=== PATIENT | male | born 1945 | race Caucasian/White ===

== ENCOUNTER 2021-02-13 17:36 | Observation (INO) | payer MEDICARE, OTHER ==
--- NOTE | 2021-02-13 18:02 | XRAY Report ---
PROCEDURE: Chest 1 View X-Ray INDICATIONS: Chest pain TECHNIQUE: One view of the chest was acquired. COMPARISON: None FINDINGS: Surgical changes and devices: None. Lungs and pleura: No pleural effusions or pneumothorax. Lungs are clear. Mediastinum: Mediastinal contours appear normal. Heart size is normal. Bones and chest wall: No suspicious bony lesions. Overlying soft tissues appear unremarkable. IMPRESSION: No evidence acute pulmonary process. Reviewed by: David Tineo MD on 02/13/2021 6:01 PM PDT Approved by: David Tineo MD on 02/13/2021 6:01 PM PDT Station ID: [id number]
[2021-02-13 18:07] LABS: BASOPHILS % (AUTO) 0.4 %; EOSINOPHILS # (AUTO) 0.1 10^3/uL (0.0-0.7); EOSINOPHILS % (AUTO) 1.8 %; HCT - HEMATOCRIT 20.3 % (42.0-52.0); LYMPHOCYTES # (AUTO) 1.1 10^3/uL (1.5-3.5); LYMPHOCYTES % (AUTO) 24.8 %; MEAN CORPUSCULAR HEMOGLOBIN 26.3 pg (27.0-31.0); MEAN CORPUSCULAR VOLUME 84.6 fL (80.0-94.0); MEAN PLATELET VOLUME 8.8 fL (7.4-11.4); MONOCYTES # (AUTO) 0.5 10^3/uL (0.0-1.0); MONOCYTES % (AUTO) 9.9 %; NEUTROPHILS # (AUTO) 2.8 10^3/uL (1.5-6.6); PLT - PLATELET COUNT 278 10^3/uL (130-450); RED CELL DISTRIBUTION WIDTH 15.3 % (12.0-15.0); WHITE BLOOD COUNT 4.6 x10^3/uL (4.8-10.8)
[2021-02-13 18:08] LABS: HGB - HEMOGLOBIN 6.3 g/dL (14.0-18.0)
[2021-02-13 18:22] LABS: ALBUMIN 2.9 g/dL (3.2-5.5); ALBUMIN/GLOBULIN RATIO 0.9 (1.0-2.2); BILIRUBIN,TOTAL 0.8 mg/dL (0.2-1.0); CALCIUM 8.7 mg/dL (8.5-10.3); CREATININE 0.5 mg/dL (0.6-1.2); POTASSIUM 3.8 mmol/L (3.5-5.0); TOTAL PROTEIN 6.2 g/dL (6.7-8.2)
--- NOTE | 2021-02-13 18:30 | ED Physician Documentation ---
History of Present Illness - Stated complaint Stated Complaint: SOA - Chief complaint Chief Complaint: Cardiac - Additonal information Additional information: This is a very pleasant 75-year-old male that comes to the emergency department for evaluation of shortness of air with activity for the last 2 days. He denies any chest pain or leg swelling with this. However he reports that intermittently for the last few weeks he has been having diarrhea that is often quite bloody dark or frankly red. He does feed birds and he thought possibly he had Salmonella. However he has not had any bloody stools now for about 24 hours and stated his bowel movement this morning was normal. He does indicate to this provider however that he often has hemorrhoids. Patient reports that he last had an echo and stress test about 5 years ago through [facility] and tells me the results were essentially normal. He also reports that he gets colonoscopies every 5 years and has been told he only has polyps. He denies any previous history of GI bleeding. PMH: hypertension, hyperlipidemia Meds: amlodipine, Lipitor, Prilosec, daily ASA 81 mg Social: Former smoker quit 30 years ago. Endorses moderate alcohol use. Review of Systems Constitutional: denies: Fever, Chills Eyes: reports: Reviewed and negative Ears: reports: Reviewed and negative Nose: reports: Reviewed and negative Throat: reports: Reviewed and negative Cardiac: denies: Chest pain / pressure, Palpitations, Calf pain Respiratory: reports: Dyspnea. denies: Cough, Hemoptysis, Wheezing GI: reports: Diarrhea, Bloody / black stool. denies: Abdominal Pain, Nausea, Vomiting : denies: Dysuria, Frequency, Hesitancy Skin: denies: Rash, Lesions Musculoskeletal: denies: Neck pain, Back pain Neurologic: reports: Reviewed and negative Psychiatric: reports: Reviewed and negative PD PAST MEDICAL HISTORY - Present Medications Home Medications: Ambulatory Orders Medication Instructions Recorded Confirmed Atorvastatin Calcium [Lipitor] 80 mg PO DAILY 02/13/21 02/13/21 - Allergies Allergies/Adverse Reactions: Allergies Allergy/AdvReac Type Severity Reaction Status Date / Time No Known Drug Allergies Allergy Verified 02/13/21 17:40 PD ED PE EXPANDED - General General: Alert, No acute distress, Well developed/nourished, Other (obese) - Cardiac Cardiac: Regular Rate, Murmur Present, Radial strong equal, Pedal strong equal, Cap refill < 2 sec - Respiratory Respiratory: Clear to ausultation sri. No: Distress, Labored, Wheezing, Rhonchi - Abdomen Abdomen: Normal Bowel sounds. No: Tender to palpation - Rectal Rectal: Hemorrhoid, Normal Tone, Other (Digital rectal exam revealed an empty vault. No stool obtained.) - Derm Derm: Normal color, Warm and dry - Neuro Neuro: Alert and Oriented X 3, CNII-XII intact - GCS Eye Opening: Spontaneous Motor: Obeys Commands Verbal: Oriented Total: 15 Results - Vitals Vitals: Vital Signs - 24 hr 02/13/21 02/13/21 02/13/21 17:40 18:30 19:16 Temperature 36.5 C Heart Rate 82 82 78 Respiratory 16 18 16 Rate Blood Pressure 132/64 H 120/68 124/67 O2 Saturation 97 97 97 02/13/21 02/13/21 02/13/21 20:00 20:08 20:17 Temperature 36.3 C L 36.2 C L 36.4 C L Heart Rate 78 72 71 Respiratory 19 19 17 Rate Blood Pressure 117/61 126/65 131/64 H O2 Saturation Oxygen O2 Source Room air - EKG (time done) 1745 Rate: Rate (enter#) (85) Rhythm: NSR, Other (multiple PVC) [place]: Normal Intervals: RBBB QRS: Normal Ischemia: Normal ST segments Compare to prior EKG: Old EKG unavailable Computer interpretation: Agree with computer - Labs Labs: Laboratory Tests 02/13/21 02/13/21 02/13/21 17:55 17:55 17:55 WBC 4.6 L RBC 2.40 L Hgb 6.3 L* Hct 20.3 L MCV 84.6 MCH 26.3 L MCHC 31.0 L RDW 15.3 H Plt Count 278 MPV 8.8 Neut # (Auto) 2.8 Lymph # (Auto) 1.1 L [place] # (Auto) 0.5 Eos # (Auto) 0.1 Baso # (Auto) 0.0 Absolute Nucleated RBC 0.00 Nucleated RBC % 0.0 Sodium 138 Potassium 3.8 Chloride 106 Carbon Dioxide 25 Anion Gap 7.0 BUN 18 Creatinine 0.5 L Estimated GFR (MDRD) 162 Glucose 114 H Calcium 8.7 Iron TIBC % Saturation Transferrin Ferritin Total Bilirubin 0.8 AST 24 ALT 24 Alkaline Phosphatase 83 Troponin I High Sens 6.0 B-Natriuretic Peptide Total Protein 6.2 L Albumin 2.9 L Globulin 3.3 Albumin/Globulin Ratio 0.9 L Lipase 31 Nasal Adenovirus (PCR) Nasal B. parapertussis DNA (PCR) Nasal Coronavir 229E PCR Nasal Coronavir HKU1 PCR Nasal Coronavir NL63 PCR Nasal Coronavir OC43 PCR Nasal Enterovir/Rhinovir PCR Nasal Influenza B PCR Nasal Parainfluen 1 PCR Nasal Parainfluen 2 PCR Nasal Parainfluen 3 PCR Nasal Parainfluen 4 PCR Nasal RSV (PCR) Nasal B.pertussis DNA PCR Nasal C.pneumoniae (PCR) Franck Human Metapneumo PCR Nasal M.pneumoniae (PCR) Nasal SARS-CoV-2 (PCR) Blood Type Blood Type Recheck Antibody Screen Crossmatch IS Only 02/13/21 02/13/21 02/13/21 17:55 17:55 17:55 WBC RBC Hgb Hct MCV MCH MCHC RDW Plt Count MPV Neut # (Auto) Lymph # (Auto) [place] # (Auto) Eos # (Auto) Baso # (Auto) Absolute Nucleated RBC Nucleated RBC % Sodium Potassium Chloride Carbon Dioxide Anion Gap BUN Creatinine Estimated GFR (MDRD) Glucose Calcium Iron 15 L TIBC 556 H % Saturation 3 L Transferrin 397 H Ferritin 5.8 L Total Bilirubin AST ALT Alkaline Phosphatase Troponin I High Sens B-Natriuretic Peptide 29 Total Protein Albumin Globulin Albumin/Globulin Ratio Lipase Nasal Adenovirus (PCR) Nasal B. parapertussis DNA (PCR) Nasal Coronavir 229E PCR Nasal Coronavir HKU1 PCR Nasal Coronavir NL63 PCR Nasal Coronavir OC43 PCR Nasal Enterovir/Rhinovir PCR Nasal Influenza B PCR Nasal Parainfluen 1 PCR Nasal Parainfluen 2 PCR Nasal Parainfluen 3 PCR Nasal Parainfluen 4 PCR Nasal RSV (PCR) Nasal B.pertussis DNA PCR Nasal C.pneumoniae (PCR) Franck Human Metapneumo PCR Nasal M.pneumoniae (PCR) Nasal SARS-CoV-2 (PCR) Blood Type Blood Type Recheck Antibody Screen Crossmatch IS Only 02/13/21 02/13/21 02/13/21 17:55 18:25 19:09 WBC RBC Hgb Hct MCV MCH MCHC RDW Plt Count MPV Neut # (Auto) Lymph # (Auto) [place] # (Auto) Eos # (Auto) Baso # (Auto) Absolute Nucleated RBC Nucleated RBC % Sodium Potassium Chloride Carbon Dioxide Anion Gap BUN Creatinine Estimated GFR (MDRD) Glucose Calcium Iron TIBC % Saturation Transferrin Ferritin Total Bilirubin AST ALT Alkaline Phosphatase Troponin I High Sens B-Natriuretic Peptide Total Protein Albumin Globulin Albumin/Globulin Ratio Lipase Nasal Adenovirus (PCR) NOT DETECTED Nasal B. parapertussis DNA (PCR) NOT DETECTED Nasal Coronavir 229E PCR NOT DETECTED Nasal Coronavir HKU1 PCR NOT DETECTED Nasal Coronavir NL63 PCR NOT DETECTED Nasal Coronavir OC43 PCR NOT DETECTED Nasal Enterovir/Rhinovir PCR NOT DETECTED Nasal Influenza B PCR NOT DETECTED Nasal Parainfluen 1 PCR NOT DETECTED Nasal Parainfluen 2 PCR NOT DETECTED Nasal Parainfluen 3 PCR NOT DETECTED Nasal Parainfluen 4 PCR NOT DETECTED Nasal RSV (PCR) NOT DETECTED Nasal B.pertussis DNA PCR NOT DETECTED Nasal C.pneumoniae (PCR) NOT DETECTED Franck Human Metapneumo PCR NOT DETECTED Nasal M.pneumoniae (PCR) NOT DETECTED Nasal SARS-CoV-2 (PCR) NOT DETECTED Blood Type O POSITIVE Blood Type Recheck O POSITIVE Antibody Screen NEGATIVE Crossmatch IS Only See Detail - Rads (name of study) CT angio abd Radiology: Final report received (Diverticulosis without evidence of diverticulitis. No active GI bleed identified. Mild atherosclerosis. Renal arteries and mesenteric arteries widely patent. Cholelithiasis.) cxr Radiology: Final report received (No acute cardiopulmonary process.) PD MEDICAL DECISION MAKING - ED course Complexity details: reviewed results, re-evaluated patient, considered differential, d/w patient ED course: 75-year-old male presents the emergency department for evaluation of 2 days shortness of air with exertion. He denies chest pain or leg swelling. He does also incidentally report that for the last 3 weeks he has been having bloody diarrhea is that he attributed to feeding birds and thought he may have Salmonella. However he has not had any diarrhea now for nearly 48 hours. On presentation he had per appears well has no vertigo or lightheadedness. Screening EKG shows right bundle branch block no previous for comparison. Screening labs do show a significant anemia with hemoglobin of 6.3 and a crit of 20. Iron studies indicate that he is significantly iron deficient. This is likely in the setting of blood loss from a gastrointestinal source. We did do a CT angiography of the abdomen that did not show an obvious source for the bleeding. I have ordered 2 units PRBC infusion. This case was discussed with nighttime hospitalist Dr. Khan who agrees to bring the patient in an observation status for further evaluation. Patient is agreeable to the plan for admission. Departure - Departure Disposition: ED Place in Observation Clinical Impression: Short of breath on exertion Anemia Qualifiers: Anemia type: iron deficiency Iron deficiency anemia type: chronic blood loss Qualified Code(s): D50.0 - Iron deficiency anemia secondary to blood loss (chronic) GI bleed Qualifiers: GI bleed type/associated pathology: unspecified gastrointestinal hemorrhage type Qualified Code(s): K92.2 - Gastrointestinal hemorrhage, unspecified Condition: Serious
[2021-02-13] MEDS ORDERED: IOPAMIDOL-300 100 ML VIAL ONE (18:50)
[2021-02-13 18:58] LABS: % IRON SATURATION 3 % (20-50); IRON 15 ug/dL (45-182); TOTAL IRON BINDING CAPACITY 556 ug/dL (250-450); TRANSFERRIN 397 mg/dL (180-329)
[2021-02-13 20:12] LABS: B. PARAPERTUSSIS- RESP PCR PAN NOT DETECTED; B. PERTUSSIS- RESP PCR PANEL NOT DETECTED; C. PNEUMONIAE- RESP PCR PANEL NOT DETECTED; CORONAVIRUS 229E-RESP PCR NOT DETECTED; CORONAVIRUS HKU1-RESP PCR NOT DETECTED; CORONAVIRUS NL63-RESP PCR NOT DETECTED; CORONAVIRUS OC43-RESP PCR NOT DETECTED; HUMAN METAPNEUMOVIRUS NOT DETECTED; INFLUENZA B - RESP PCR PANEL NOT DETECTED; M. PNEUMONIAE- RESP PCR PANEL NOT DETECTED; PARAINFLUENZA VIRUS 1 NOT DETECTED; PARAINFLUENZA VIRUS 2 NOT DETECTED; PARAINFLUENZA VIRUS 3 NOT DETECTED; PARAINFLUENZA VIRUS 4 NOT DETECTED; RHINOVIRUS/ENTEROVIRUS NOT DETECTED; RSV- RESP PCR PANEL NOT DETECTED; SARS-CoV-2 -RESP PCR PANEL NOT DETECTED
--- NOTE | 2021-02-13 20:19 | CT Report ---
PROCEDURE: ANGIO ABDOMEN/PELVIS W INDICATIONS: anemia, gi bleed CONTRAST: IV CONTRAST: Isovue 300 ml: 100 PO CONTRAST: *NO PO CONTRAST TECHNIQUE: After the administration of intravenous contrast, 2 and 5 mm sections acquired from the diaphragm to the iliac crests. 3-dimensional maximum intensity projection (MIP) coronal and sagittal reformats, a nd/or 3-dimensional volume rendering reformatting was then performed. For radiation dose reduction, the following was used: automated exposure control, adjustment of mA and/or kV according to patient size. COMPARISON: None FINDINGS: Image quality: Excellent. Extravascular tissues: Lung bases are clear. Heart size is normal. Small hiatal hernia. Liver and spleen are normal in size and enhancement. Gallbladder contains multiple layering gallstones. There is no gallbladder wall thickening. Biliary system is non dilated. Pancreas enhances normally. No a drenal nodules. Kidneys are normal in size and enhancement, without hydronephrosis. Non-opacified b owel loops demonstrate normal wall thickness and caliber. Extensive diverticulosis without evidence of diverticulitis. There is density present in the third portion of the duodenum which may represent ingested contents. No convincing evidence of acute bowel hemorrhage. No free fluid or air. No retrop eritoneal or mesenteric adenopathy. Small fat-containing periumbilical hernia. No suspicious bony abn ormalities. No vertebral body compression fractures. Abdominal aorta: Normal caliber, mild atherosclerotic calcifications. Mesenteric arteries: Celiac, SMA, JEAN are widely patent. Renal arteries: Renal arteries are widely patent. IMPRESSION: 1. Extensive diverticulosis without evidence of diverticulitis. 2. No active GI bleed identified. 3. Density in the third portion of the duodenum may represent ingested contents. 4. Mild atherosclerosis. Renal arteries and mesenteric arteries widely patent. 5. Cholelithiasis. Reviewed by: David Tineo MD on 02/13/2021 8:18 PM PDT Approved by: David Tineo MD on 02/13/2021 8:18 PM PDT Station ID: [id number]
[2021-02-13] MEDS ORDERED: ACETAMINOPHEN 325 MG TABLET PO PRN (20:24)
[2021-02-13] MEDS ORDERED: ONDANSETRON ODT 4 MG TABLET TL PRN (20:24)
[2021-02-13] MEDS ORDERED: oxyCODONE 5 MG TABLET PO PRN (20:24)
[2021-02-13] MEDS ORDERED: SODIUM CHLORIDE FLUSH 0.9% 10 ML SYRINGE IVP PRN (20:24)
[2021-02-13] MEDS ORDERED: ONDANSETRON 4 MG/2 ML VIAL IVP PRN (20:24)
[2021-02-13] MEDS ORDERED: IOPAMIDOL-300 100 ML VIAL IVP ONE (20:24)
--- NOTE | 2021-02-13 20:46 | HISTORY & PHYSICAL EXAMINATION ---
Chief Complaint - Chief Complaint Chief Complaint: rectal bleeding x 3 weeks and now jimenez History of Present Illness - Admitted From Admitted From:: home - History Obtained From Records Reviewed: [facility] History obtained from: CARLITA Parrish and patient Exam Limitations: none - History of Present Illness HPI Comment/Other: Is a 75-year-old white male who has no previous GI pathology that presented to the ER because he was dyspneic on exertion for the last 2 days. There is no chest pain, palpitations, orthopnea, edema. He does not have any history of heart disease or lung disease. He has no abdominal pain, fever, chills. There is been no change in his appetite. He is still having bowel movements albeit bloody. He has been having bloody diarrhea for about 3 weeks. He would have a bloody bowel movement or 2 a day for 2 or 3 days and then it would stop. Then it would come back. Then it would stop. Then it would come back. Last bloody bowel movement was on Wednesday (today is ). He does have a past medical history of hemorrhoids. He is not sure why but he did have an echocardiogram and a stress test 5 years ago at [facility] through his primary care provider. Those were negative. He went back to the gym on January 30 and had been working out to his satisfaction. But the second or third time he went back, he was having decreasing endurance and could not complete his usual workout because he was so short of breath. With this complaint [place] They asked to please come to the emergency room for further evaluation and treatment. He was seen in the emergency room by CARLITA Parrish. Temperature was 36.5. Heart rate 82. Blood pressure 132/84. Respirations 16. 97% on room air. He is 124.1 kg and is 5 foot 9 inches tall. He had a benign abdominal exam. Digital rectal exam had a empty vault with no stool obtained. Skin was warm and dry. He is a well developed well nourished male. CMP had a random glucose of 114 but was otherwise normal. Total protein is mildly low at 6.2 with albumin mildly low at 2.9. Iron is low at 15. Ferritin is 5.8. Hemoglobin is 6.3, MCV 84. Platelets 278. Since he is followed by an outside provider, there are no previous lab reports available for this patient to compare. Abdomen pelvis CT angiogram was done and he has extensive diverticulosis without diverticulitis. No active GI bleed identified. Density in the third portion of the duodenum may represent ingested contents. Mild atherosclerosis. Renal arteries and mesenteric arteries widely patent. Asymptomatic cholelithiasis. CARLITA Parrish is now asking for observation status to transfuse this patient and continue to monitor him for lower GI bleed. History - Past Medical History Cardiovascular: reports: Hypertension, High cholesterol Musculoskeletal: reports: Other (meniscus tear of knee) - Past Surgical History General: reports: Appendectomy HEENT: reports: Cataracts, Tonsil/Adenoidectomy - Family & Social History Family History Comment/Other: Dad at age 80 of pancreatic cancer. Mom at age 86 of complications of COPD. Twin sister is healthy. Older sister has had small bowel obstruction and intermittent diarrhea. 1 son has a bad back but no hypertension, diabetes, cancer, heart attack Living arrangement: At home Living Situation: With spouse/s.o. Social History Notes: Born in [place] but spent his formative years in [facility]. [facility]/[place]. Binge drank as a young man is all youth are wont to do. But no problems with alcohol abuse as he got older. Smoked heavily until 1978 and stopped then. for close to 50 years to his first . They have 1 son who lives in [place]. 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 Retired in 2004 and bought their home on [address] then and has lived on the [address] since. - Substance History Use: Uses substance without health or social issues: NONE Abuse: Recurrent use of substance despite neg consequences: NONE Dependence: Experiences withdrawal or developed tolerances: NONE - POLST Patient has POLST: No POLST Status: Full Code Meds/Allgy - Home Medications Home Medications: Ambulatory Orders Medication Instructions Recorded Confirmed Atorvastatin Calcium [Lipitor] 80 mg PO DAILY 02/13/21 02/13/21 - Allergies Allergies/Adverse Reactions: Allergies Allergy/AdvReac Type Severity Reaction Status Date / Time No Known Drug Allergies Allergy Verified 02/13/21 17:40 Review of Systems - Constitutional Constitutional: denies: Fatigue, Fever, Chills, Malaise, Poor appetite, Diaphoresis, Weight gain, Weight loss - Eyes Eyes: reports: Pain, Irritation, Amaurosis, Corrective lenses. denies: Blurred vision - Ears, Nose & Throat Ears, Nose & Throat: denies: Hearing aids, Tinnitus, Vertigo - Cardiovascular Cariovascular: reports: Exertional dyspnea, Decr. exercise tolerance. denies: Irregular heart rate, Palpitations, Chest pain, Edema, Lightheadedness, Syncope - Respiratory Respiratory: reports: SOB with exertion. denies: Cough, Sputum production, Wheezing, Snoring, Hemoptysis, Orthopnea, SOB at rest - Gastrointestinal Gastrointestinal: reports: Change in bowel habits, Rectal bleeding, Bloody stools. denies: Abdominal pain, Abdominal distention, Constipation, Diarrhea, Black stools, Nausea, Vomiting, Bile emesis, Teofilo blood emesis - Genitourinary Genitourinary: reports: Frequency, Urgency, Nocturia. denies: Dysuria, Hematuria, Incontinence, Flank pain, Urethral discharge - Musculoskeletal Musculoskeletal: reports: Stiffness (mild from age). denies: Muscle pain, Back pain, Muscle aches, Gout, Joint pain - Integumentary Integumentary: denies: Rash, Pruritis, Lesions, Dryness, Acne - Neurological Neurological: reports: Memory problems (that everyone gets as they get older), Incoordination (falls when he is not working out regularly). denies: General weakness, Focal weakness, Headache, Dizziness, Numbness, Pre-existing deficit - Psychiatric Psychiatric: denies: Depression, Anxiety, Suicidal, Delusions, Hallucinations - Endocrine Endocrine: denies: Polyuria, Polydypsia, Polyphagia, Intolerance to cold - Hematologic/Lymphatic Hematologic/Lymphatic: reports: Anemia. denies: Bruising, Petechiae, Blood clots, Lymphadenopathy, Bleeding tendencies Prior Level of Functionality: Completely independent with activities of daily living. Drives a car. Takes care of his own home. Pays bills. No durable medical equipment. Exam - Vital Signs Reviewed Vital Signs: Yes Vital Signs: Vital Signs x48h Temp Pulse Resp BP Pulse Ox 02/13/21 20:17 36.4 C L 71 17 131/64 H 02/13/21 20:08 36.2 C L 72 19 126/65 02/13/21 20:00 36.3 C L 78 19 117/61 02/13/21 19:16 78 16 124/67 97 02/13/21 18:30 82 18 120/68 97 02/13/21 17:40 36.5 C 82 16 132/64 H 97 - Physical Exam General Appearance: positive: No acute distress, Alert, Other (Balding elderly male, wearing glasses, comfortable, watching [employer], stuttering speech.) Eyes Bilateral: positive: PERRL, EOMI ENT: positive: Pharynx nml Neck: positive: No JVD. negative: Stiff neck Respiratory: positive: No respiratory distress. negative: Wheezes, Rales, Rhonchi Cardiovascular: positive: Regular rate & rhythm, Systolic murmur. negative: Gallop/S4, Friction rub Peripheral Pulses: positive: 1+ Abdomen: positive: Non-tender, No organomegaly, Nml bowel sounds, No distention Back: negative: CVA tenderness (R), CVA tenderness (L) Skin: positive: Warm, Dry, Pallor Extremities: positive: Non-tender, No pedal edema Neurologic/Psychiatric: positive: Oriented x3, CN's nml (2-12), Motor nml, Sensation nml, Slurred/abnml speech (stutters) Conclusion/Plan - Problem List (1) Lower GI bleeding Conclusion/Plan: With acute blood loss anemia. No previous history of ulcerative colitis, there is no fever or chills or abdominal pain so I do not think Salmonella/Shigella/enterotoxigenic E. coli. He has had negative colonoscopies in the past so differential of neoplasm is low on the list. He does have extensive diverticulosis and could be having diverticular bleeding. Bleeding stopped approximately a day ago. 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 Adri Whitaker. He states that if at all possible, if any procedures are recommended, he would prefer to follow-up with [facility] where his usual care is. Continue to monitor and transfuse if below 7 g (2) Acute blood loss anemia Conclusion/Plan: Monitor serial hemoglobins. We will check 1 hour after first unit. Goal is to keep him above 7 g of hemoglobin. (3) Short of breath on exertion Conclusion/Plan: Most likely due to the acute anemia. This gentleman has had a previous cardiac work-up that was negative. Troponin is 6.0. Plan: At this time I am not can a repeat stress test or echo. That can be done in the outpatient setting with his primary care provider if they feel it is necessary. I am attributing his dyspnea on exertion to the anemia. (4) HTN (hypertension) Conclusion/Plan: Hold off on his blood pressure medicine until tomorrow. Qualifiers: Hypertension type: essential hypertension Qualified Code(s): I10 - Essential (primary) hypertension - Lab Results Lab results reviewed: Yes Fish Bones: 02/13/21 17:55 02/13/21 17:55 - Diagnostic Imaging Results Diagnostic Imaging Results: positive: Final report reviewed (Results as discussed in history of present illness) Core Measures - Anticipated LOS I expect patient to be DC'd or transferred within 96 hours.: Yes - DVT/VTE - Prophylaxis VTE/DVT Device ordered at admit?: Yes
[2021-02-13] MEDS ORDERED: LACTATED RINGERS 1,000 ML IV SCH (21:00)
[2021-02-14 05:26] LABS: HCT - HEMATOCRIT 23.5 % (42.0-52.0); HGB - HEMOGLOBIN 7.4 g/dL (14.0-18.0); MEAN CORPUSCULAR HEMOGLOBIN 26.7 pg (27.0-31.0); MEAN CORPUSCULAR HGB CONC 31.5 g/dL (32.0-36.0); MEAN CORPUSCULAR VOLUME 84.8 fL (80.0-94.0); MEAN PLATELET VOLUME 8.8 fL (7.4-11.4); RED BLOOD COUNT 2.77 10^6/uL (4.70-6.10); RED CELL DISTRIBUTION WIDTH 15.4 % (12.0-15.0); WHITE BLOOD COUNT 3.7 x10^3/uL (4.8-10.8)
[2021-02-14] MEDS: SODIUM CHLORIDE FLUSH 0.9% 10 ML SYRINGE IVP SCH ×2 (08:03→09:24)
[2021-02-14] MEDS ORDERED: FERROUS SULFATE 325 MG TABLET PO SCH (09:02)
--- NOTE | 2021-02-14 09:09 | PHARMACY PROGRESS NOTE ---
- Best Possible Medication History Admit Date and Time: 02/13/212023 Processed by: Nursing Medication History completed: Yes As the person ultimately responsible for medication therapy, providers are able to order a medication from an existing home medication list in [facility] via the "Reconcile Routine" prior to Confirmation of that medication by instructional support specialist. Such practice is discouraged except when the physician, in their clinical judgment, deems that a medical need exists for a medication without regard to previous use.
[2021-02-14] MEDS ORDERED: LACTATED RINGERS 1,000 ML IV SCH (10:00)
[2021-02-14 11:58] LABS: HCT - HEMATOCRIT 24.4 % (42.0-52.0); HGB - HEMOGLOBIN 7.5 g/dL (14.0-18.0)
--- NOTE | 2021-02-14 12:10 | CONSULTATION NOTE ---
Referring Provider Name of Referring Provider:: MD Giorgio Consult Date: 02/14/21 Chief Complaint - Chief Complaint Chief Complaint: Bloody diarrhea and anemia History of Present Illness - Admitted From Admitted From:: ED - History of Present Illness HPI Comment/Other: Mr. Stephen is a 75 year old gentleman admitted from the ED to the hospitalist service last evening. He has a history of bloody diarrhea and anemia and I have been consulted for consideration of colonoscopy. The patient reports he has had no further bleeding since admission. He reports he is well established with a [employer] at and would prefer to continue follow up there. He denies any GI distress currently. Our plan going forward is to recheck Hgb this afte rnoon. If stable, he will be discharged to follow up at . If Hgb drops, will reconsider staying at our facility for endoscopy. History - Past Medical History Cardiovascular: reports: Hypertension, High cholesterol Musculoskeletal: reports: Other (meniscus tear of knee) - Past Surgical History General: reports: Appendectomy Ortho: reports: Other HEENT: reports: Cataracts, Tonsil/Adenoidectomy - Family & Social History Family History Comment/Other: Dad at age 80 of pancreatic cancer. Mom at age 86 of complications of COPD. Twin sister is healthy. Older sister has had small bowel obstruction and intermittent diarrhea. 1 son has a bad back but no hypertension, diabetes, cancer, heart attack Living arrangement: At home Living Situation: With spouse/s.o. Social History Notes: Born in [place] but spent his formative years in [place]. [facility]/[place]. Binge drank as a young man is all youth are wont to do. But no problems with alcohol abuse as he got older. Smoked heavily until 1978 and stopped then. for close to 50 years to his first . They have 1 son who lives in [place]. 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 Retired in 2004 and bought their home on [address] then and has lived on the [address] since. - Substance History Use: Uses substance without health or social issues: NONE Abuse: Recurrent use of substance despite neg consequences: NONE Dependence: Experiences withdrawal or developed tolerances: NONE - POLST Patient has POLST: No POLST Status: Full Code Meds/Allgy - Home Medications Home Medications: Ambulatory Orders Medication Instructions Recorded Confirmed Atorvastatin Calcium [Lipitor] 80 mg PO DAILY 02/13/21 02/13/21 - Allergies Allergies/Adverse Reactions: Allergies Allergy/AdvReac Type Severity Reaction Status Date / Time No Known Drug Allergies Allergy Verified 02/13/21 17:40 Exam - Vital Signs Vital Signs: Vital Signs x48h Temp Pulse Pulse Resp BP BP Pulse Ox 02/14/21 07:15 36.6 C 84 16 121/60 96 02/14/21 04:27 36.8 C 75 75 16 115/59 L 115/59 L 95 Conclusion and Plan - Lab Results Laboratory Results 02/14/21 11:55: Hgb 7.5 L, Hct 24.4 L 02/14/21 05:24: WBC 3.7 L, RBC 2.77 L, Hgb 7.4 L, Hct 23.5 L, MCV 84.8, MCH 26.7 L, MCHC 31.5 L, RDW 15.4 H, Plt Count 229, MPV 8.8 02/13/21 19:09: Nasal Adenovirus (PCR) NOT DETECTED, Nasal B. parapertussis DNA (PCR) NOT DETECTED, Nasal Coronavir 229E PCR NOT DETECTED, Nasal Coronavir HKU1 PCR NOT DETECTED, Nasal Coronavir NL63 PCR NOT DETECTED, Nasal Coronavir OC43 PCR NOT DETECTED, Nasal Enterovir/Rhinovir PCR NOT DETECTED, Nasal Influenza B PCR NOT DETECTED, Nasal Parainfluen 1 PCR NOT DETECTED, Nasal Parainfluen 2 PCR NOT DETECTED, Nasal Parainfluen 3 PCR NOT DETECTED, Nasal Parainfluen 4 PCR NOT DETECTED, Nasal RSV (PCR) NOT DETECTED, Nasal B.pertussis DNA PCR NOT DETECTED, Nasal C.pneumoniae (PCR) NOT DETECTED, Franck Human Metapneumo PCR NOT DETECTED, Nasal M.pneumoniae (PCR) NOT DETECTED, Nasal SARS-CoV-2 (PCR) NOT DETECTED 02/13/21 18:25: Blood Type O POSITIVE, Antibody Screen NEGATIVE, Crossmatch IS Only See Detail 02/13/21 17:55: Blood Type Recheck O POSITIVE 02/13/21 17:55: Ferritin 5.8 L 02/13/21 17:55: Iron 15 L, TIBC 556 H, % Saturation 3 L, Transferrin 397 H 02/13/21 17:55: B-Natriuretic Peptide 29 02/13/21 17:55: Troponin I High Sens 6.0 02/13/21 17:55: Sodium 138, Potassium 3.8, Chloride 106, Carbon Dioxide 25, Anion Gap 7.0, BUN 18, Creatinine 0.5 L, Estimated GFR (MDRD) 162, Glucose 114 H, Calcium 8.7, Total Bilirubin 0.8, AST 24, ALT 24, Alkaline Phosphatase 83, Total Protein 6.2 L, Albumin 2.9 L, Globulin 3.3, Albumin/Globulin Ratio 0.9 L, Lipase 31 02/13/21 17:55: WBC 4.6 L, RBC 2.40 L, Hgb 6.3 L*, Hct 20.3 L, MCV 84.6, MCH 26.3 L, MCHC 31.0 L, RDW 15.3 H, Plt Count 278, MPV 8.8, Neut # (Auto) 2.8, Lymph # (Auto) 1.1 L, [place] # (Auto) 0.5, Eos # (Auto) 0.1, Baso # (Auto) 0.0, Absolute Nucleated RBC 0.00, Nucleated RBC % 0.0
[2021-02-14 12:13] VITALS: BP 128/94
--- NOTE | 2021-02-14 13:03 | Discharge Plan ---
Discharge Plan Problem Reviewed?: Yes Disposition: Home, Self Care Condition: Stable Diet: Regular Activity Restrictions: Activity as Tolerated Shower Restrictions: No (fall precaution) Instruction Topics: Bleeding Rectal, ED Diverticulosis, Anemia Iron Deficiency Ch Health Concerns: diverticulosis/GI rectal bleed, iron deficiency anemia Plan of Treatment: Your HGB is slight elevated, you have no GI bleeding now. you prefer to followup with , not our hospital, for endoscopy, please followup with [facility]. You are also found to have iron deficiency as well. you prefer to have iron supplement from over-count, not iron pill. you may followup with your PCP to recheck your HGB in one week. Care Goals: stabilization and resolve/improvement of your medical conditions. Assessment: discussed the care plan with you, you understood and agreed. Additional Instructions or Follow Up instructions: You may followup with your PCP to recheck your HGB level in one week, followup with [facility] as out-pt. Should your GI bleeding return or worsen, you may present ER or call 911 for help. No Smoking: If you smoke, Please STOP! Call for help. Follow-up with: YUSRA REYES MD [Primary Care Provider] -
--- NOTE | 2021-02-14 13:13 | DISCHARGE SUMMARY ---
Discharge Summary Admit Date: 02/13/21 Discharge Date: 02/14/21 Discharging Provider: Demarcus Sanon Primary Care Provider: Nico Gaines Condition at Discharge: Stable Discharge Disposition: 01 Home, Self Care Discharge Facility Name: home - DIAGNOSES Discharge Diagnoses with Status of Each Condition: (1) Lower GI bleeding pt's Hemoglobin continue to increases after He had 1 unit blood transfusion. Patient had a small bowel movement in the morning without bloody. Surgeon agree to discharge patient. Patient declined to have endoscopy in this hospital, he would like to go to For endoscopy. CT of the abdomen plus pelvis show patient had extensive diverticulosis. (2) Acute blood loss anemia Patient hemoglobin is 7.5, increased. Patient had a 1 unit blood transfusion. Patient was also found to have iron deficiency. pt Declined to have iron pill. he prefer to have iron supplement from [id number]. (3) Short of breath on exertion resolved. Most likely due to the acute anemia. Chest x-ray is unremarkable. Troponin is negative, patient denies chest pain. Patient has 94 to 96% sats on room air, patient is without tachypnea, tachycardia. Patient is hemodynamic stable (4) HTN (hypertension) Stable - HPI History of Present Illness: refer from Dr. Alvarse's HPI on 02/13/21 Is a 75-year-old white male who has no previous GI pathology that presented to the ER because he was dyspneic on exertion for the last 2 days. There is no chest pain, palpitations, orthopnea, edema. He does not have any history of heart disease or lung disease. He has no abdominal pain, fever, chills. There is been no change in his appetite. He is still having bowel movements albeit bloody. He has been having bloody diarrhea for about 3 weeks. He would have a bloody bowel movement or 2 a day for 2 or 3 days and then it would stop. Then it would come back. Then it would stop. Then it would come back. Last bloody bowel movement was on Wednesday (today is ). He does have a past medical history of hemorrhoids. He is not sure why but he did have an echocardiogram and a stress test 5 years ago at [facility] through his primary care provider. Those were negative. He went back to the gym on January 30 and had been working out to his satisfaction. But the second or third time he went back, he was having decreasing endurance and could not complete his usual worko ut because he was so short of breath. With this complaint [place] They asked to please come to the emergency room for further evaluation and treatment. He was seen in the emergency room by CARLITA Parrish. Temperature was 36.5. Heart rate 82. Blood pressure 132/84. Respirations 16. 97% on room air. He is 124.1 kg and is 5 foot 9 inches tall. He had a benign abdominal exam. Digital rectal exam had a empty vault with no stool obtained. Skin was warm and dry. He is a well developed well nourished male. CMP had a random glucose of 114 but was otherwise normal. Total protein is mildly low at 6.2 with albumin mildly low at 2.9. Iron is low at 15. Ferritin is 5.8. Hemoglobin is 6.3, MCV 84. Platelets 278. Since he is followed by an outside provider, there are no previous lab reports available for this patient to compare. Abdomen pelvis CT angiogram was done and he has extensive diverticulosis without diverticulitis. No active GI bleed identified. Density in the third portion of the duodenum may represent ingested contents. Mild atherosclerosis. Renal arteries and mesenteric arteries widely patent. Asymptomatic cholelithiasis. CARLITA Parrish is now asking for observation status to transfuse this patient and continue to monitor him for lower GI bleed. - HOSPITAL COURSE Hospital Course: Patient was admitted for shortness of breathing. Patient was found to have rectal bleeding with a hemoglobin 6.3. Patient had a 1 unit of blood transfusion, patient hemoglobin continue steady and increases. Patient has no rectal bleeding With normal color small bowel movement. Patient prefer to have endoscopy in . pt Had iron deficiency, patient prefer to have iron supplement from [id number]. Patient was discharged at hemodynamically stable condition - ALLERGIES Allergies/Adverse Reactions: Allergies Allergy/AdvReac Type Severity Reaction Status Date / Time No Known Drug Allergies Allergy Verified 02/13/21 17:40 - MEDICATIONS Home Medications: Ambulatory Orders Medication Instructions Recorded Confirmed Atorvastatin Calcium [Lipitor] 80 mg PO DAILY 02/13/21 02/13/21 - PHYSICAL EXAM AT DISCHARGE General Appearance: positive: No acute distress, Alert. negative: Lethargic Eyes Bilateral: positive: Normal inspection, PERRL, No lid inflammation ENT: positive: ENT inspection nml, No signs of dehydration. negative: Purulent nasal drainage Neck: positive: Nml inspection, Trachea midline. negative: Thyromegaly, Tracheal deviation Respiratory: positive: Chest non-tender, No respiratory distress, Breath sounds nml. negative: Wheezes, Rales Cardiovascular: positive: Regular rate & rhythm, No murmur. negative: Tachycardia, Bradycardia, Systolic murmur, Diastolic murmur Peripheral Pulses: positive: 2+ Abdomen: positive: Non-tender, Nml bowel sounds, No distention. negative: Tenderness Back: positive: Nml inspection Skin: positive: Color nml, Warm, Dry. negative: Cyanosis, Diaphoresis, Pallor Extremities: positive: Non-tender, Full ROM, Nml appearance. negative: Calf ten derness Neurologic/Psychiatric: positive: Oriented x3, Motor nml, Sensation nml, Mood/affect nml. negative: Weakness, Sensory loss, Facial droop, Slurred/abnml speech, Depressed mood/affect - LABS Result Diagrams: 02/14/21 11:55 02/13/21 17:55 - FOLLOW UP Follow Up: Your HGB is slight elevated, you have no GI bleeding now. you prefer to followup with , not our hospital, for endoscopy, please followup with . You are also found to have iron deficiency as well. you prefer to have iron supplement from over-count, not iron pill. you may followup with your PCP to recheck your HGB in one week. You may followup with your PCP to recheck your HGB level in one week, followup with [facility] as out-pt. Should your GI bleeding return or worsen, you may present ER or call 911 for help. - TIME SPENT Time Spent in Discharge (Minutes): 30
== END 2021-02-14 13:20 | disposition home or self-care (01) ==
LOC: ED 17:36 → MS2 20:24
PROVIDERS: ADMIT Specialist; ATTEND Nurse Practitioner Gerontology
DX: K57.31 Diverticulosis of large intestine without perforation or abscess with bleeding (principal); D62 Acute posthemorrhagic anemia; E61.1 Iron deficiency; R19.7 Diarrhea, unspecified; I10 Essential (primary) hypertension; E78.00 Pure hypercholesterolemia, unspecified; R35.0 Frequency of micturition; R39.15 Urgency of urination; R35.1 Nocturia; R41.3 Other amnesia; Z20.822 Contact with and (suspected) exposure to COVID-19; Z79.899 Other long term (current) drug therapy; Z87.891 Personal history of nicotine dependence
CPT/HCPCS: 36415; 36430; 71045; 74174; 80053; 82728; 83540; 83690; 83880; 84466; 84484; 85014; 85018; 85025; 85027; 86850; 86900; 86901; 86920; 87631; 93005; 99284; 99285; A9270; G0378; J7120; P9016; Q9967; 0202U